=== PATIENT | male | born 1995 | race Hispanic/Latino ===

== ENCOUNTER 2020-11-22 08:13 | Emergency (ER) | payer OTHER, SELFPAY ==
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
== END 2020-11-22 10:57 | disposition home or self-care (01) ==
LOC: ERS 08:13
DX: S40.021A Contusion of right upper arm, initial encounter (principal); S20.311A Abrasion of right front wall of thorax, initial encounter; V58.0XXA Driver of pick-up truck or van injured in noncollision transport accident in nontraffic accident, initial encounter; Y92.410 Unspecified street and highway as the place of occurrence of the external cause
CPT/HCPCS: 71046